=== PATIENT | female | born 2000 | race Caucasian/White ===

== ENCOUNTER 2021-06-28 10:06 | Observation (INO) | payer BC, OTHER ==
[2021-06-28 10:42] LABS: #Eosinphils 0.2 10x3/uL (0.0-0.5); #Monocytes 0.8 10x3/uL (0.0-1.1); #Neutrophils 5.4 10x3/uL (1.5-8.4); %Basophils 0.5 % (0.0-2.0); %Eosinophils 2.6 % (0.0-6.0); %Lymphocytes 22.6 % (18.0-47.0); %Monocytes 9.1 % (0.0-10.0); %Neutrophils 64.7 % (40.0-75.0); Hemoglobin 13.1 g/dL (12.0-15.5); Mean Corpuscular HGB CONC 34.7 g/dL (32.0-36.0); Mean Corpuscular Hemoglobin 31.8 pg (27.0-33.0); Mean Corpuscular Volume 91.5 fl (81.6-98.3); Mean Platelet Volume 10.4 fl (7.4-10.4); Platelet Count 251 10x3/uL (150-450); RBC Distribution Width 12.5 % (11.5-14.5); Red Blood Cell (RBC) Count 4.12 10x6/uL (3.90-5.03); White Blood Cell (WBC) Count 8.4 10x3/uL (3.5-10.5)
[2021-06-28 10:53] LABS: INR-International Normal Ratio 0.9; PTT 22.8 sec (22.0-33.0); Prothrombin Time 9.8 sec (9.5-12.1)
[2021-06-28 10:58] LABS: ALT (SGPT) 12 U/L (8-55); AST (SGOT) 19 U/L (5-34); Acetaminophen Less than 10.0 mcg/mL (10.0-30.0); Albumin 4.2 g/dL (3.5-5.0); Alcohol Less than 10 mg/dL (Less than 10); Alkaline Phosphatase 36 U/L (40-110); Anion Gap 12 mmol/L (10-20); BUN (Urea Nitrogen) 9 mg/dL (7.0-18.7); Bilirubin, Total 0.4 mg/dL (0.2-1.2); CK (CPK) 69 U/L (29-168); Calc. Creatinine Clearance 0 mL/min (70-130); Calcium 9.3 mg/dL (7.8-10.44); Carbon Dioxide 22 mmol/L (22-29); Chloride 104 mmol/L (98-107); Globulin 2.9 g/dL (2.4-3.5); Glucose 83 mg/dL (70-105); Potassium 3.9 mmol/L (3.5-5.1); Protein, Total 7.1 g/dL (6.0-8.3); Salicylate Less than 8.0 mg/dL (15.0-30.0); Sodium 134 mmol/L (136-145)
[2021-06-28] MEDS ORDERED: Aspirin Chewable 81 MG TAB ONE (11:47)
[2021-06-28 11:59] LABS: Bilirubin Neg (Negative); Blood, Urine Negative (Negative); Clarity Clear (Clear); Glucose, Urine (Dipstick) Normal (Negative); Ketone, Urine Negative (Negative); Leukocyte Negative (Negative); Nitrite Negative (Negative); Protein, Urine (Dipstick) Negative (Neg-Trace); Urobilinogen Normal mg/dL (Less than 2)
[2021-06-28 12:09] LABS: Amphetamine Not Detected (NotDetected); Barbiturates Screen Not Detected (NotDetected); Benzodiazepine Screen Not Detected (NotDetected); Cocaine Metabolite Screen Not Detected (NotDetected); Methadone Not Detected (NotDetected); Methamphetamine Not Detected (NotDetected); Opiate Screen Not Detected (NotDetected); Oxycodone Screen Not Detected (NotDetected); Phencyclidine (PCP) Not Detected (NotDetected); THC/Cannabinoid Screen Not Detected (NotDetected); Tricyclic Screen Not Detected (NotDetected)
[2021-06-28 13:51] VITALS: BMI 22.7
[2021-06-28 15:29] LABS: Troponin I Less than 0.010 ng/mL (< 0.028)
[2021-06-28 16:06] LABS: Troponin I Less than 0.010 ng/mL (< 0.028)
[2021-06-28 16:10] LABS: INR-International Normal Ratio 0.9; Prothrombin Time 10.2 sec (9.5-12.1)
[2021-06-28 17:07] LABS: Hemoglobin A1c 4.6 % (4.0-6.0)
[2021-06-29 05:09] LABS: Cardiac Risk 2.7 (Less than 4.5)
[2021-06-29] MEDS ORDERED: Aspirin 81 mg Enteric Coated Tablet PO SCH (09:00)
[2021-06-29 10:33] LABS: SARS-CoV-2 NAA Rapid Test Not Detected (NotDetected)
[2021-06-29 11:36] VITALS: BP 118/63; TEMP 98.1
[2021-07-01 19:39] LABS: Cardiolipin IgA Ab 2.5 APL-U/mL (<14 Negative); Cardiolipin IgG Ab 4.8 GPL-U/mL (<10 Negative); EliA APS New Method **** NEW METHOD ****
[2021-07-03 10:22] LABS: Factor VIII Test 146.3 % ACTIVE (56-157); Protein C Activity 92 % (78-152)
== END 2021-06-29 14:45 | disposition home or self-care (01) ==
LOC: CSHERS 10:06 → CSHTELE 13:45
PROVIDERS: ADMIT Family Medicine; ATTEND Family Medicine
DX: O99.891 Other specified diseases and conditions complicating pregnancy (principal); R20.0 Anesthesia of skin; R51.9 Headache, unspecified; R00.2 Palpitations; H54.61 Unqualified visual loss, right eye, normal vision left eye; O99.412 Diseases of the circulatory system complicating pregnancy, second trimester; I34.0 Nonrheumatic mitral (valve) insufficiency; Z3A.17 17 weeks gestation of pregnancy; Z87.891 Personal history of nicotine dependence; Z91.012 Allergy to eggs; Z91.040 Latex allergy status; Z98.890 Other specified postprocedural states; Z20.822 Contact with and (suspected) exposure to COVID-19
CPT/HCPCS: 36415; 36416; 70450; 70551; 71045; 76805; 80053; 80061; 80306; 80307; 81003; 82550; 83036; 83090; 84443; 84484; 85025; 85240; 85300; 85303; 85305; 85307; 85379; 85598; 85610; 85730; 86147; 93005; 93306; 93880; G0378; U0002

== ENCOUNTER 2021-11-29 08:07 | Outpatient (CLI) | payer BC | END 2021-11-29 08:08 | disposition home or self-care (01) | LOC: CSHLAB 08:07 | PROVIDERS: ATTEND Obstetrics & Gynecology | DX: Z20.822 Contact with and (suspected) exposure to COVID-19 (principal) | CPT/HCPCS: 87811 ==